=== PATIENT | male | born 1945 | race Caucasian/White ===

== ENCOUNTER 2023-07-22 14:24 | Inpatient (IN) | payer OTHER ==
[~2023-07-22] VITALS: Ht 175.3 cm; Wt 118.7 kg
[2023-07-22 15:31] LABS: Basophils # (auto) 0.1 10 ^3/uL (0-0.2); Basophils % (auto) 0.8 % (0.0-2.0); Eosinophils # (auto) 0.5 10 ^3/uL (0-0.8); Eosinophils % (auto) 6.2 % (0.0-7.0); Hematocrit 47.4 % (41.0-53.0); Lymphocytes # (auto) 2.2 10 ^3/uL (0.4-5.4); Lymphocytes % (auto) 24.5 % (10.0-50.0); Mean Corpuscular Hemoglobin 30.6 pg (28.0-32.0); Mean Corpuscular Hgb Conc. 33.8 g/dL (32.0-36.0); Mean Corpuscular Volume 90.5 fL (80.0-100.0); Monocytes # (auto) 0.5 10 ^3/uL (0-1.3); Neutrophils # (auto) 5.5 10 ^3/uL (1.6-8.6); Neutrophils % (auto) 62.5 % (37.0-80.0); Nucleated Red Blood Cells % 0.2 %; Red Blood Cells 5.24 10^6/uL (4.5-5.90); Red Cell Distribution Width 14.1 % (11.8-14.3); White Blood Cell 8.8 10^3/uL (4.4-10.8)
[2023-07-22 16:06] LABS: Alanine Aminotransferase 31 U/L (7-40); Albumin 4.3 g/dL (3.2-4.8); Alkaline Phosphatase 105 U/L (46-116); Anion Gap 7 (5-15); Aspartate Aminotransferase 19 U/L (13-40); BUN/Creatinine Ratio 18.9 (10.0-20.0); Blood Urea Nitrogen 23 mg/dL (9-23); Calcium 9.6 mg/dL (8.5-10.1); Carbon Dioxide 27 mmol/L (20-30); Chloride 106 mmol/L (98-107); Glucose 109 mg/dL (74-106); Potassium 4.4 mmol/L (3.5-5.1); Sodium 140 mmol/L (136-145)
[2023-07-22 16:07] LABS: Bilirubin, Total 0.5 mg/dL (0.2-1.0); Total Protein 6.6 g/dL (5.7-8.2)
[2023-07-22] MEDS: NITROGLYCERIN 0.4 MG SL TAB SL ONE ×2 (17:04→19:01)
[2023-07-22 19:01] VITALS: BP 189/96; PULSE 72; RESP 18; O2SAT 97
[2023-07-22] MEDS ORDERED: DOCUSATE SOD 100 MG CAP PO PRN (22:30)
[2023-07-22] MEDS ORDERED: NITROGLYCERIN 0.4 MG SL TAB SL PRN ×2 (22:30)
[2023-07-22] MEDS ORDERED: ACETAMINOPHEN 325 MG TAB PO PRN (22:30)
[2023-07-22] MEDS ORDERED: ONDANSETRON HCL 4 MG/2 ML VIAL IV PRN (22:30)
[2023-07-22] MEDS ORDERED: hydrALAZINE HCL 20 MG/ML VL IV PRN (22:30)
[2023-07-22] MEDS ORDERED: MORPHINE SULFATE INJ 2 MG/ml SYRG IV PRN (22:30)
[2023-07-23] MEDS ORDERED: ENOXAPARIN SOD 40 MG/0.4 ML SYRINGE SC SCH (10:00)
[2023-07-23] MEDS ORDERED: LOSARTAN POTASSIUM 50 MG TAB PO SCH (10:00)
== END 2023-07-22 23:53 | disposition left against medical advice (07) | DRG 311 ==
LOC: ER 14:24 → TELE 22:42
PROVIDERS: ADMIT Nurse Practitioner Family; ATTEND Nurse Practitioner Family
DX: I20.89 Other forms of angina pectoris (principal); M79.602 Pain in left arm; K21.9 Gastro-esophageal reflux disease without esophagitis; R09.89 Other specified symptoms and signs involving the circulatory and respiratory systems; I10 Essential (primary) hypertension
CPT/HCPCS: 36415; 71045; 80053; 83880; 84484; 85025; 93005; G0378

== ENCOUNTER 2023-07-23 11:04 | Inpatient (IN) | payer OTHER ==
[~2023-07-23] VITALS: Ht 175.3 cm; Wt 119.1 kg
[2023-07-23 11:52] LABS: Basophils # (auto) 0.1 10 ^3/uL (0-0.2); Basophils % (auto) 1.1 % (0.0-2.0); Eosinophils # (auto) 0.5 10 ^3/uL (0-0.8); Eosinophils % (auto) 6.7 % (0.0-7.0); Hematocrit 45.4 % (41.0-53.0); Hemoglobin 15.7 g/dL (13.5-17.5); Lymphocytes # (auto) 1.9 10 ^3/uL (0.4-5.4); Lymphocytes % (auto) 25.3 % (10.0-50.0); Mean Corpuscular Hemoglobin 31.1 pg (28.0-32.0); Mean Corpuscular Hgb Conc. 34.4 g/dL (32.0-36.0); Mean Corpuscular Volume 90.2 fL (80.0-100.0); Monocytes # (auto) 0.6 10 ^3/uL (0-1.3); Monocytes % (auto) 7.4 % (0.0-12.0); Neutrophils # (auto) 4.6 10 ^3/uL (1.6-8.6); Neutrophils % (auto) 59.5 % (37.0-80.0); Nucleated Red Blood Cells % 0.2 %; Red Blood Cells 5.04 10^6/uL (4.5-5.90); Red Cell Distribution Width 13.9 % (11.8-14.3); White Blood Cell 7.7 10^3/uL (4.4-10.8)
[2023-07-23 12:11] LABS: Alanine Aminotransferase 33 U/L (7-40); Albumin 4.3 g/dL (3.2-4.8); Alkaline Phosphatase 109 U/L (46-116); Anion Gap 9 (5-15); Aspartate Aminotransferase 25 U/L (13-40); BUN/Creatinine Ratio 18.9 (10.0-20.0); Bilirubin, Total 0.7 mg/dL (0.2-1.0); Blood Urea Nitrogen 23 mg/dL (9-23); Calcium 9.6 mg/dL (8.5-10.1); Carbon Dioxide 25 mmol/L (20-30); Chloride 106 mmol/L (98-107); Glucose 103 mg/dL (74-106); Potassium 4.4 mmol/L (3.5-5.1); Sodium 140 mmol/L (136-145); Total Protein 6.4 g/dL (5.7-8.2)
[2023-07-23] MEDS: NITROGLYCERIN 0.4 MG SL TAB SL ONE (16:30)
[2023-07-23] MEDS ORDERED: MORPHINE SULFATE INJ 2 MG/ml SYRG IV PRN (17:30)
[2023-07-23] MEDS ORDERED: ONDANSETRON HCL 4 MG/2 ML VIAL IV PRN (17:30)
[2023-07-23] MEDS ORDERED: HYDROcodone-ACET 5/325MG TAB PO PRN (17:30)
[2023-07-23] MEDS ORDERED: NITROGLYCERIN 0.4 MG SL TAB SL PRN (17:30)
[2023-07-23 18:26] LABS: Folate (Folic Acid) > 24.00 ng/mL (>5.38)
[2023-07-23] MEDS: IOHEXOL 350 MG/ML 100ML IJ ONE (19:08)
[2023-07-23 19:47] LABS: Triglycerides 130 mg/dL (< 150)
[2023-07-23 19:48] LABS: LDL Cholesterol 146 mg/dL (< 100)
[2023-07-23 19:49] LABS: Cholesterol 207 mg/dL (< 200); HDL Cholesterol 52 mg/dL (40-59)
[2023-07-23] MEDS: cloNIDine HCL 0.1 MG TAB PO PRN (20:53)
[2023-07-24] MEDS: ATORVASTATIN 20 MG TAB PO SCH (00:01)
[2023-07-24] MEDS: LOSARTAN POTASSIUM 25 MG TAB PO SCH (00:02)
[2023-07-24] MEDS: hydroCHLOROthiazide 25 MG TAB PO SCH (00:02)
[2023-07-24] MEDS: SOD CHL 0.45% 1,000 ML IV SCH (00:03)
[2023-07-24 00:13] VITALS: PULSE 63; RESP 20; O2SAT 97
[2023-07-24] MEDS ORDERED: LOSA50TA46 PO (00:18)
[2023-07-24] MEDS ORDERED: AMLO1TAB23 PO (00:18)
[2023-07-24] MEDS ORDERED: OMEP-448 PO (00:18)
[2023-07-24 05:00] VITALS: BP 137/84; PULSE 60; RESP 20; TEMP 97.4; O2SAT 94
[2023-07-24 06:35] LABS: Chloride 106 mmol/L (98-107); Potassium 3.9 mmol/L (3.5-5.1); Sodium 141 mmol/L (136-145)
[2023-07-24 06:36] LABS: Anion Gap 7 (5-15); Calcium 9.1 mg/dL (8.5-10.1); Carbon Dioxide 28 mmol/L (20-30)
[2023-07-24 06:41] LABS: BUN/Creatinine Ratio 18.3 (10.0-20.0); Blood Urea Nitrogen 24 mg/dL (9-23); Glucose 104 mg/dL (74-106)
[2023-07-24 08:00] VITALS: PULSE 63; PULSE 75; RESP 18; O2SAT 98
[2023-07-24 08:54] VITALS: BP 123/44; PULSE 53; RESP 18; TEMP 97.9; O2SAT 90
[2023-07-24] MEDS: ASPirin-EC 81 mg tab PO SCH (09:47)
[2023-07-24 13:00] VITALS: BP 145/58; PULSE 62; RESP 18; TEMP 97.7; O2SAT 94
[2023-07-24] MEDS ORDERED: PANTOPRAZOLE 40 MG TAB PO ONE (13:15)
[2023-07-24] MEDS ORDERED: GABA-1250 PO (16:11)
[2023-07-24 16:16] VITALS: BP 123/44; TEMP 36.5
[2023-07-25] MEDS ORDERED: hydroCHLOROthiazide 25 MG TAB PO SCH (10:00)
[2023-07-25] MEDS ORDERED: PANTOPRAZOLE 40 MG TAB PO SCH (10:00)
== END 2023-07-24 16:35 | disposition home or self-care (01) | DRG 74 ==
LOC: ER 11:04 → TELE-WESTW 17:23 → TELE 17:23 → TELE-WESTW 23:28
PROVIDERS: ADMIT Hospitalist; ATTEND Hospitalist
DX: M54.12 Radiculopathy, cervical region (principal); I10 Essential (primary) hypertension; K21.9 Gastro-esophageal reflux disease without esophagitis; I20.89 Other forms of angina pectoris; R09.89 Other specified symptoms and signs involving the circulatory and respiratory systems; R20.2 Paresthesia of skin; Z82.49 Family history of ischemic heart disease and other diseases of the circulatory system
CPT/HCPCS: 36415; 71045; 71275; 72141; 80048; 80053; 80061; 82607; 82746; 83036; 83880; 84484; 85025; 85379; 93005; 93306; G0378